=== PATIENT | female | born 1985 | race Caucasian/White ===

== ENCOUNTER 2018-04-15 20:52 | Emergency (ER) | payer OTHER ==
[2018-04-15] MEDS ORDERED: NS 1,000 ML IV ONE ×2 (21:21→22:15)
--- NOTE | 2018-04-15 21:27 | EDPHY ---
General Time Seen by Provider: 04/15/18 21:21 Narrative: CHIEF COMPLAINT: Vomiting, diarrhea HISTORY OF PRESENT ILLNESS: Patient presents by private vehicle with her spouse with complaints of vomiting and diarrhea. She reports eating a meal with her around 7:00 p.m.. This consisted of 2 glasses of wine. Approximately 30 min later, she felt a sudden onset of vomiting followed immediately by diarrhea. She has vomited 3 times. Two episodes of diarrhea. These are nonbloody and nonbilious. She also describes feeling very anxious and "out of it." She had no chest pain. No headache. No neck pain or stiffness. No fever. She reports feeling significantly better but not resolved. This is without intervention. She has no abdominal pain. She has no back pain. She has no pelvic or vaginal complaints. No urinary complaints. No previous history of this. No abdominal pathology or surgeries. No other associated complaints or modifying factors REVIEW OF SYSTEMS: 10 systems were reviewed and negative with the exception of the elements mentioned in the history of present illness. PCP: Dr. Lorena Acosta SPECIALISTS: None PAST MEDICAL HISTORY: Uncomplicated PAST SURGICAL HISTORY: No surgical history SOCIAL HISTORY: Nonsmoker. Works as a pharmacist. Lives independently with her spouse. Moved from [place] 4 months ago. FAMILY HISTORY: Noncontributory EXAMINATION: General Appearance: Alert, no distress. Conversing in full sentences. Head: normocephalic, atraumatic Eyes: Pupils equal and round, no conjunctival pallor or injection ENT, Mouth: Mucous membranes moist. Airway patent Neck: Normal inspection, supple, non-tender Respiratory: Lungs are clear to auscultation Cardiovascular: Regular rate and rhythm. No murmur Gastrointestinal: Abdomen is soft and nontender no tympany rigidity. No guarding. No distention. No palpable mass. Bowel sounds present all quadrants Back: non-tender, no bony abnormalities Neurological: A&O, nonfocal, normal gait Skin: Warm and dry, no rash. No petechiae or purpura Extremities: Nontender, no pedal edema Psychiatric: Mood and affect normal DIFFERENTIAL DIAGNOSES: Including but not limited to gastritis, dehydration, enteritis, gastroenteritis , alcohol intoxication, alcohol withdrawal MDM: 9:30 p.m. Acute nausea, vomiting and diarrhea just after eating a meal this evening. She stared her a meal with her and he is asymptomatic. Her symptoms have steadily improved. She does report feeling somewhat disoriented, and he describes an anxiety response as well, but I do not appreciate any of these at this time. She is well-appearing. She is nontoxic. She does appear to be intoxicated but is in no acute distress. Abdominal exam is benign. I do not feel she warrants any imaging at this time. I have ordered laboratory studies, nausea medication and IV fluid and will re-evaluate shortly. 10:10 p.m. CBC is unremarkable with minimal leukocytosis, likely due to vomiting. Chemistry is unremarkable with normal lipase and liver function test. Patient re-evaluated. She is feeling minimally better. She is feeling jittery and anxious. I have ordered 2nd L fluid and a dose of promethazine IV. She is well -appearing with normal vital signs. 11:00 p.m. Patient re-evaluated. Ethyl alcohol level is 247. This is higher than would be expected with her stated alcohol ingestion. Patient reports that this is what she has had today. I suspect that there may be a component of further alcohol dependency that she is not willing to discussed at this time. She is well- appearing. She is not vomiting. Her abdominal exam is benign. She is afebrile and does not exhibit any signs of delirium tremens or encephalopathy. Continue to hydrate and trial her with p.o. Intake 11:55 p.m. Patient re-evaluated. She is feeling significantly better. She has been drinking water without difficulty. She has no abdominal pain. No vomiting. She is awake alert. No acute distress. She does not exhibit any anxiety, delirium tremens or signs of withdrawal. There may be an underlying component of alcohol dependency, but she is not reporting this. She states that she feels well would like to go home. I do feel this is reasonable. Her at bedside will drive her home. She will contact her primary care physician. She is discharged home stable condition. SUPERVISION: This patient was independently evaluated without direct involvement of or examination by the attending physician. CONSULTATION: None - History Smoking Status: Never smoked - Objective Vital Signs: Initial Vital Signs Temperature (C) 98.2 F 04/15/18 20:55 Heart Rate 97 04/15/18 20:55 Respiratory Rate 16 04/15/18 20:55 Blood Pressure 91/77 L 04/15/18 20:55 O2 Sat (%) 94 04/15/18 20:55 O2 Delivery Mode Room Air Allergies/Adverse Reactions: No Known Allergies Allergy (Unverified 04/15/18 20:54) Home Medications: Medication Instructions Recorded [facility] Control 04/15/18 Laboratory Results: Laboratory Results 04/15/18 21:15 04/15/18 21:15 04/15/18 04/15/18 04/15/18 21:15 21:15 21:15 WBC RBC Hgb Hct MCV MCH MCHC RDW Plt Count MPV Neut % (Auto) Lymph % (Auto) [place] % (Auto) Eos % (Auto) Baso % (Auto) Nucleat RBC Rel Count Absolute Neuts (auto) Absolute Lymphs (auto) Absolute Monos (auto) Absolute Eos (auto) Absolute Basos (auto) Absolute Nucleated RBC Immature Gran % Immature Gran # Sodium 142 mEq/L mEq/L (135-145) Potassium 4.3 mEq/L mEq/L (3.3-5.0) Chloride 106 mEq/L mEq/L (97-110) Carbon Dioxide 21 mEq/l L mEq/l (22-31) Anion Gap 15 mEq/L mEq/L (8-16) BUN 9 mg/dL mg/dL (7-23) Creatinine 0.8 mg/dL mg/dL (0.6-1.0) Estimated GFR > 60 Glucose 107 mg/dL H mg/dL (70-100) Calcium 9.7 mg/dL mg/dL (8.5-10.4) Total Bilirubin 0.4 mg/dL mg/dL (0.1-1.4) Conjugated Bilirubin 0.2 mg/dL mg/dL (0.0-0.5) Unconjugated Bilirubin 0.2 mg/dL mg/dL (0.0-1.1) AST 31 IU/L IU/L (14-46) ALT 49 IU/L IU/L (9-52) Alkaline Phosphatase 48 IU/L IU/L (38-126) Total Protein 7.3 g/dL g/dL (6.3-8.2) Albumin 4.7 g/dL g/dL (3.5-5.0) Lipase 66 IU/L IU/L (23-300) Beta HCG, Qual NEGATIVE Ethyl Alcohol 242 mg/dL H mg/dL (0-10) 04/15/18 21:15 WBC 12.70 10^3/uL H 10^3/uL (3.80-9.50) RBC 4.64 10^6/uL 10^6/uL (4.18-5.33) Hgb 14.4 g/dL g/dL (12.6-16.3) Hct 41.7 % % (38.0-47.0) MCV 89.9 fL fL (81.5-99.8) MCH 31.0 pg pg (27.9-34.1) MCHC 34.5 g/dL g/dL (32.4-36.7) RDW 12.2 % % (11.5-15.2) Plt Count 292 10^3/uL 10^3/uL (150-400) MPV 9.8 fL fL (8.7-11.7) Neut % (Auto) 87.1 % H % (39.3-74.2) Lymph % (Auto) 10.1 % L % (15.0-45.0) [place] % (Auto) 1.6 % L % (4.5-13.0) Eos % (Auto) 0.2 % L % (0.6-7.6) Baso % (Auto) 0.5 % % (0.3-1.7) Nucleat RBC Rel Count 0.0 % % (0.0-0.2) Absolute Neuts (auto) 11.08 10^3/uL H 10^3/uL (1.70-6.50) Absolute Lymphs (auto) 1.28 10^3/uL 10^3/uL (1.00-3.00) Absolute Monos (auto) 0.20 10^3/uL L 10^3/uL (0.30-0.80) Absolute Eos (auto) 0.02 10^3/uL L 10^3/uL (0.03-0.40) Absolute Basos (auto) 0.06 10^3/uL 10^3/uL (0.02-0.10) Absolute Nucleated RBC 0.00 10^3/uL 10^3/uL (0-0.01) Immature Gran % 0.5 % % (0.0-1.1) Immature Gran # 0.06 10^3/uL 10^3/uL (0.00-0.10) Sodium Potassium Chloride Carbon Dioxide Anion Gap BUN Creatinine Estimated GFR Glucose Calcium Total Bilirubin Conjugated Bilirubin Unconjugated Bilirubin AST ALT Alkaline Phosphatase Total Protein Albumin Lipase Beta HCG, Qual Ethyl Alcohol Medications Given: Discontinued Medications Famotidine (Pepcid) 20 mg IVP EDNOW ONE Stop: 04/15/18 21:44 Last Admin: 04/15/18 22:03 Dose: 20 mg Sodium Chloride (Ns) 1,000 mls @ 0 mls/hr IV ONCE ONE; Wide Open PRN Reason: Protocol Stop: 04/15/18 21:22 Last Admin: 04/15/18 21:23 Dose: 1,000 mls Sodium Chloride (Ns) 1,000 mls @ 0 mls/hr IV EDNOW ONE; Wide Open PRN Reason: Protocol Stop: 04/15/18 22:16 Last Admin: 04/15/18 22:48 Dose: 1,000 mls Ondansetron HCl (Zofran) 4 mg IVP EDNOW ONE Stop: 04/15/18 21:43 Last Admin: 04/15/18 21:59 Dose: 4 mg Promethazine HCl (Phenergan) 6.25 mg IVP ONCE ONE Stop: 04/15/18 22:16 Last Admin: 04/15/18 22:48 Dose: 6.25 mg Departure - Departure Disposition: Home, Routine, Self-Care Clinical Impression: Acute alcohol intoxication Qualifiers: Complication of substance-induced condition: uncomplicated Qualified Code(s): F10.929 - Alcohol use, unspecified with intoxication, unspecified Gastritis Qualifiers: Gastritis type: other gastritis Chronicity: acute Gastritis bleeding: without bleeding Qualified Code(s): K29.00 - Acute gastritis without bleeding Diarrhea Qualifiers: Diarrhea type: unspecified type Qualified Code(s): R19.7 - Diarrhea, unspecified Condition: Good Instructions: Promethazine (By mouth), Ondansetron (By mouth), Gastritis (ED), Alcohol Intoxication (ED), Acute Diarrhea (ED) Additional Instructions: 1. Nausea medications as provided as needed 2. Increase fluid intake 3. Contact primary care physician tomorrow morning 4. Return here for any return of symptoms, difficulty eating or drinking, chest pain or shortness of breath, signs or symptoms of withdrawal from alcohol Referrals: ELEAZAR CARMONA [Non Staff Provider (MD)] - As per Instructions
[2018-04-15 21:29] LABS: PLATELET COUNT 292 10^3/uL (150-400)
[2018-04-15] MEDS ORDERED: ONDANSETRON 4 MG/2 ML VIAL IVP ONE (21:42)
[2018-04-15] MEDS ORDERED: FAMOTIDINE 20 MG/2 ML SDV IVP ONE (21:43)
[2018-04-15] MEDS ORDERED: PROMETHAZINE HCL 25 MG/ML INJ IVP ONE (22:15)
[2018-04-15] MEDS ORDERED: ONDANSETRON DISINTEGRATING 4 MG TAB PO ONE (23:02)
[2018-04-15] MEDS ORDERED: PROMETHAZINE 25 MG PREPACK #4 BTL TAKEHOME ONE (23:02)
[2018-04-16] MEDS ORDERED: ONDANSETRON 4MG PREPACK#2 BTL TAKEHOME ONE (00:01)
[2018-04-16 00:09] VITALS: BP 107/62
== END 2018-04-16 00:09 | disposition home or self-care (01) ==
DX: K29.00 Acute gastritis without bleeding (principal); F10.929 Alcohol use, unspecified with intoxication, unspecified; Y90.8 Blood alcohol level of 240 mg/100 ml or more; R19.7 Diarrhea, unspecified; E86.9 Volume depletion, unspecified
CPT/HCPCS: 96374; G0480; J2405; J2550